=== PATIENT | female | born 2000 | race Caucasian/White ===

== ENCOUNTER 2018-11-24 03:14 | Emergency (ER) | payer OTHER ==
[~2018-11-24] VITALS: Ht 162.6 cm; Wt 56.7 kg
[2018-11-24 03:24] VITALS: BP 105/78
[2018-11-24] MEDS ORDERED: SPRINTEC1 EACH PO (03:26)
[2018-11-24] MEDS ORDERED: IBUPROFEN 600600 M1 PO (03:47)
== END 2018-11-24 03:56 | disposition home or self-care (01) ==
LOC: M.ERS 03:14
DX: S82.892A Other fracture of left lower leg, initial encounter for closed fracture (principal); Z88.6 Allergy status to analgesic agent; W10.9XXA Fall (on) (from) unspecified stairs and steps, initial encounter; Y92.89 Other specified places as the place of occurrence of the external cause; Y93.89 Activity, other specified; Y99.8 Other external cause status